=== PATIENT | male | born 1995 | race Caucasian/White ===

== ENCOUNTER 2022-08-25 06:26 | Observation (INO) | payer BC ==
[2022-08-23 12:54] LABS: BASOPHILS # (AUTO) 0.1 (0.0-0.1); BASOPHILS % 0.8 % (0.0-1.0); EOSINOPHILS % 0.3 % (0.0-6.0); HEMATOCRIT 45.7 % (38.2-49.6); HEMOGLOBIN 15.8 g/dL (14.0-18.0); LYMPHOCYTES % 21.7 % (18.0-39.1); MEAN CORPUSCULAR HEMOGLOBIN 31.9 pg (28-32); MEAN CORPUSCULAR HGB CONC 34.6 g/dL (31-35); MEAN CORPUSCULAR VOLUME 92.1 fL (81-99); MONOCYTES # (AUTO) 0.4 (0.2-0.8); MONOCYTES % 4.4 % (4.4-11.3); NEUTROPHILS # (AUTO) 6.5 (2.1-6.9); NEUTROPHILS % 72.1 % (38.7-80.0); PLATELET COUNT 294 x10e3/uL (140-360); RED BLOOD COUNT 4.96 x10e6/uL (4.3-5.7); RED CELL DISTRIBUTION WIDTH 11.4 % (11.7-14.4)
[2022-08-23 13:11] LABS: INR 0.89; PARTIAL THROMBOPLASTIN TIME 26.2 seconds (23.8-35.5); PROTHROMBIN TIME 12.9 seconds (11.9-14.5)
[2022-08-23 13:18] LABS: ANION GAP 15.2 mmol/L (8-16); CALCIUM 9.6 mg/dL (8.4-10.2); CREATININE, SERUM 1.14 mg/dL (0.72-1.25); POTASSIUM 4.2 mmol/L (3.5-5.1)
[~2022-08-25] VITALS: Ht 167.6 cm; Wt 77.8 kg
[2022-08-25] VITALS (7 sets, daily range): BP systolic 118–136; BP diastolic 62–73
[2022-08-25] MEDS ORDERED: Vancomycin IV 1 GM VIAL ONE (07:00)
[2022-08-25] MEDS ORDERED: THROMBIN FOR SOLN 5,000 UNIT VIAL ONE (07:01)
[2022-08-25] MEDS ORDERED: HYDROCODON-ACE1 EA12 PO (09:23)
[2022-08-25] MEDS ORDERED: ONDANSETRON HCL INJ 2MG/ML 2ML 2 MG/ML VIAL IV PRN (09:30)
[2022-08-25] MEDS ORDERED: CARISOPRODOL 350 MG TAB PO PRN (09:30)
[2022-08-25] MEDS ORDERED: HYDROMORPHONE 2MG/ML 2 MG/ML ML IV PRN (09:30)
[2022-08-25] MEDS ORDERED: MAGNESIUM/ALUMINUM/SIMETHICONE 30 ML UDC PO PRN (09:30)
[2022-08-25] MEDS ORDERED: ACETAMINOPHEN 325 MG TAB PO PRN (09:30)
[2022-08-25] MEDS ORDERED: Morphine 10mg syringe 10 MG/ML INJ IM PRN (09:30)
[2022-08-25] MEDS ORDERED: LACTATED RINGER'S 1,000 ML IV SCH (09:30)
[2022-08-25] MEDS ORDERED: ZOLPIDEM TARTRATE 5 MG TAB PO PRN (09:30)
[2022-08-25] MEDS ORDERED: PROMETHAZINE HCL (IM) 25 MG/ML VIAL IM PRN (09:30)
[2022-08-25] MEDS ORDERED: FENTANYL CITRATE/PF 100MCG/2 ML INJ ONE (09:34)
[2022-08-25] MEDS ORDERED: CARISOPRODOL 350 MG TAB ONE (11:09)
[2022-08-25] MEDS ORDERED: OXYCODONE/ACETAMINOPHEN 5-325 1 EACH TABLET ONE (11:09)
[2022-08-25] MEDS: OXYCODONE/ACETAMINOPHEN 5-325 1 EACH TABLET PO PRN ×2 (15:07→19:24)
[2022-08-25] MEDS: CEPACOL SORE THROAT LOZENGES PO PRN (15:15)
[2022-08-25] MEDS ORDERED: SODIUM CHLORIDE 0.9% 250ML 250 ML ONE (15:16)
[2022-08-26 04:19] VITALS: BP 113/67
[2022-08-26] MEDS: CEPACOL SORE THROAT LOZENGES PO PRN (07:21)
[2022-08-26 08:20] VITALS: BP 113/73
[2022-08-26 09:16] VITALS: BP 113/73
[2022-08-26] MEDS ORDERED: KETOROLAC TROMETHAMINE 30 MG/ML VIAL IV ONE (09:19)
[2022-08-26] MEDS ORDERED: LIDOCAINE HCL 2% LOCAL INJ 5 ML SDV VIAL INJ ONE (09:19)
[2022-08-26] MEDS ORDERED: METHOCARBAMOL 100MG/1ML 10ML VIAL IV ONE (09:19)
[2022-08-26] MEDS ORDERED: NEOSTIGMINE 1 MG/ML 10ML VIAL IV ONE (09:19)
[2022-08-26] MEDS ORDERED: ROCURONIUM BROMIDE 10 MG/ML 5ML VIAL IV ONE (09:19)
[2022-08-26] MEDS ORDERED: ACETAMINOPHEN 1000 MG/100 ML IV ONE (09:19)
[2022-08-26] MEDS ORDERED: ONDANSETRON HCL INJ 2MG/ML 2ML 2 MG/ML VIAL IV ONE (09:19)
[2022-08-26] MEDS ORDERED: SEVOFLURANE INHAL SOLN 250 ML PEN BTL INH ONE (09:19)
[2022-08-26] MEDS ORDERED: DEXAMETHASONE SOD PHOS INJ 4 MG/ML SDV IV ONE (09:19)
[2022-08-26] MEDS ORDERED: POVIDONE IODINE 0.05% 0.05 % ML PO ONE (09:19)
[2022-08-26] MEDS ORDERED: GLYCOPYRROLATE INJ 0.2 MG/ML VIAL IV ONE (09:19)
[2022-08-26] MEDS ORDERED: PROPOFOL IV EMULSION 10 MG/ML 20 ML VIAL IV ONE (09:19)
== END 2022-08-26 09:20 | disposition home or self-care (01) ==
LOC: OR 06:26 → PACU V 09:20 → MED/SURG 13:55
PROVIDERS: ADMIT Neurological Surgery; ATTEND Neurological Surgery
DX: M50.123 Cervical disc disorder at C6-C7 level with radiculopathy (principal); Z01.818 Encounter for other preprocedural examination; Z20.822 Contact with and (suspected) exposure to COVID-19
CPT/HCPCS: 0223U; 36415; 71046; 76000; 80048; 85025; 85610; 85730; 86850; 86900; 88304; 88311; 93005; C1713; G0378; J0690; J1100; J1885; J2001; J2405; J2710; J2800; J3010; J3370; J7050

== ENCOUNTER → 2022-09-19 | Outpatient (CLI) | payer BC ==
[~2022-09-19] MED LIST: HYDROCODON-ACE1 EA12 PO
== END ==
LOC: RAD 12:13
PROVIDERS: ATTEND Neurological Surgery
DX: M50.20 Other cervical disc displacement, unspecified cervical region (principal); M43.22 Fusion of spine, cervical region
CPT/HCPCS: 72050

== ENCOUNTER → 2023-03-06 | Outpatient (CLI) | payer BC | LOC: RAD 11:06 | PROVIDERS: ATTEND Neurological Surgery | DX: M50.20 Other cervical disc displacement, unspecified cervical region (principal); M43.22 Fusion of spine, cervical region | CPT/HCPCS: 72050 ==

== ENCOUNTER 2025-05-22 06:06 | Observation (INO) | payer BC ==
[2025-05-19 12:24] LABS: BASOPHILS % 0.7 % (0.0-1.0); EOSINOPHILS % 0.2 % (0.0-6.0); LYMPHOCYTES % 32.1 % (18.0-39.1); MONOCYTES % 5.9 % (4.4-11.3); NEUTROPHILS % 60.7 % (38.7-80.0); RED CELL DISTRIBUTION WIDTH 11.6 % (11.7-14.4)
[2025-05-19 12:33] LABS: INR 0.89
[2025-05-19 12:37] LABS: EST GLOMERULAR FILTRATION RATE 79.0 ML/MIN (>=60)
[~2025-05-22] VITALS: Ht 167.6 cm; Wt 77.1 kg
[~2025-05-22 06:06] MED LIST changes: +MAGNESIUM THREONATE PO
[2025-05-22] MEDS: LACTATED RINGER'S 1,000 ML ONE (06:47)
[2025-05-22] MEDS: CEFAZOLIN SODIUM 2 GM ONE (06:48)
[2025-05-22] MEDS ORDERED: LIDOCAINE HCL 2% LOCAL INJ 5 ML SDV VIAL INJ ONE (07:21)
[2025-05-22] MEDS ORDERED: FENTANYL CITRATE/PF 100MCG/2 ML INJ ONE (07:21)
[2025-05-22] MEDS ORDERED: MIDAZOLAM HCL 2 MG/2 ML VIAL ONE (07:21)
[2025-05-22] MEDS ORDERED: ROCURONIUM BROMIDE 1 ML IV ONE (07:21)
[2025-05-22] MEDS ORDERED: SEVOFLURANE INHAL SOLN 250 ML PEN BTL ONE (07:22)
[2025-05-22] MEDS ORDERED: KETAMINE HCL INJ 50 MG/ML 10 ML VIAL ONE (07:22)
[2025-05-22] MEDS ORDERED: ACETAMINOPHEN 1000 MG/100 ML 100 ML IV ONE (07:22)
[2025-05-22] MEDS ORDERED: PROPOFOL IV EMULSION 10 MG/ML 20 ML VIAL ONE (07:22)
[2025-05-22] MEDS ORDERED: SODIUM CHLORIDE 0.9% 100 ML ONE (07:25)
[2025-05-22] MEDS ORDERED: DEXMEDETOMIDINE HCL 2 ML ONE (07:25)
[2025-05-22] MEDS ORDERED: ONDANSETRON HCL INJ 2MG/ML 2ML 2 MG/ML VIAL ONE (07:52)
[2025-05-22] MEDS ORDERED: DEXAMETHASONE SOD PHOS INJ 4 MG/ML SDV ONE (07:52)
[2025-05-22] MEDS ORDERED: HYDROMORPHONE 2MG/ML ONE (08:02)
[2025-05-22] MEDS ORDERED: SUGAMMADEX SODIUM 200 MG/2 ML VIAL IV ONE (08:03)
[2025-05-22] MEDS: LACTATED RINGER'S 1,000 ML IV SCH (09:00)
[2025-05-22] MEDS ORDERED: ACETAMINOPHEN 325 MG TAB PO PRN (09:00)
[2025-05-22] MEDS ORDERED: CARISOPRODOL 350 MG TAB PO PRN (09:00)
[2025-05-22] MEDS ORDERED: PROMETHAZINE HCL (IM) 25 MG/ML VIAL IM PRN (09:00)
[2025-05-22] MEDS ORDERED: ONDANSETRON HCL INJ 2MG/ML 2ML 2 MG/ML VIAL IV PRN (09:00)
[2025-05-22] MEDS ORDERED: Morphine 10mg syringe 10 MG/ML INJ IM PRN (09:00)
[2025-05-22] MEDS ORDERED: HYDROMORPHONE 2MG/ML IV PRN (09:00)
[2025-05-22] MEDS ORDERED: MAGNESIUM/ALUMINUM/SIMETHICONE 30 ML UDC PO PRN (09:00)
[2025-05-22] MEDS ORDERED: OXYCODONE/ACETAMINOPHEN 5-325 1 EACH TABLET PO PRN (11:00)
[2025-05-22 15:32] VITALS: BP 125/70; PULSE 60; RESP 18; TEMP 97.8; O2SAT 99
[2025-05-22 16:00] VITALS: BP 125/70; PULSE 60; RESP 18; TEMP 97.8; O2SAT 99
[2025-05-22 20:00] VITALS: BP 142/79; PULSE 74; RESP 18; TEMP 98.1; O2SAT 98
[2025-05-22] MEDS ORDERED: ZOLPIDEM TARTRATE 5 MG TAB PO PRN (21:00)
[2025-05-22 21:30] VITALS: BP 142/79; PULSE 74; RESP 18; TEMP 98.1; O2SAT 98
[2025-05-22] MEDS: OXYCODONE/ACETAMINOPHEN 5-325 1 EACH TABLET PO PRN (22:31)
[2025-05-23] VITALS: BP 113/62; PULSE 72; RESP 16; TEMP 98.7; O2SAT 97
[2025-05-23 04:00] VITALS: BP 111/67; PULSE 72; RESP 17; TEMP 98.5; O2SAT 98
[2025-05-23 08:54] VITALS: BP 111/67; PULSE 72; RESP 17; TEMP 98.5; O2SAT 98
== END 2025-05-23 10:30 | disposition home or self-care (01) ==
LOC: OR 06:06 → PACU V 08:58 → MED/SURG 14:20
PROVIDERS: ADMIT Neurological Surgery; ATTEND Neurological Surgery
DX: M50.122 Cervical disc disorder at C5-C6 level with radiculopathy (principal); J45.909 Unspecified asthma, uncomplicated; F90.9 Attention-deficit hyperactivity disorder, unspecified type; Z01.810 Encounter for preprocedural cardiovascular examination; Z01.812 Encounter for preprocedural laboratory examination
CPT/HCPCS: 20931; 22551; 22845; 36415; 71046; 72040; 76000; 80048; 85025; 85610; 85730; 86850; 86900; 88304; 88311; 93005; C1713 ×2; C1762; G0378 ×2; J0131; J0690 ×2; J1100; J1171; J2003; J2250; J2405; J2704; J3010; J7050; J7121